=== PATIENT | female | born 1980 | race Hispanic/Latino ===

== ENCOUNTER 2025-03-08 07:03 | Emergency (ER) | payer OTHER, SELFPAY ==
[2025-03-08 07:13] VITALS: BP 136/96
--- NOTE | 2025-03-08 07:57 | ED.GENMED ---
History of Present Illness
General
Chief Complaint: Eye Problems
Time Seen by Provider: 03/08/25 07:57
History of Present Illness
History of Present Illness:
TIME OF INITIAL ENCOUNTER: 8 AM
HPI: The patient presents with acute redness and pain to the left eye. She prefers to keep her eyes closed due to the pain. She thinks that maybe she got something in the eye and has a sensation of a foreign body. She has a sharp sensation.
EXAM:
GENERAL: Well appearing in no distress
HEENT: Moist oral mucosa, the conjunctive of the left eye is markedly inflamed, no significant scleral chemosis, pupils are normally reactive but on the smaller side, no obvious foreign body, no fluorescein uptake
NEUROLOGIC: Excellent strength all extremities, no obvious coordination deficits
PSYCHIATRIC: Appropriate mental status, normal insight and judgement
EXTREMITIES: Nontender, no edema, moves all extremities equally
SKIN: No rash, no lesions
NUMBER AND COMPLEXITY OF PROBLEMS ADDRESSED AT THE ENCOUNTER
� Chronic conditions affecting care: No significant past medical history
� Acute Exacerbation and/or Progression of Chronic Illness: This is an acute problem
� Differential Diagnosis includes: Conjunctivitis related to virus, allergies, bacterial infection, foreign body, iritis less likely
AMOUNT AND/OR COMPLEXITY OF DATA TO BE REVIEWED AND ANALYZED
� I performed an independent evaluation of and my interpretation is:
EKG:
CT:
X-rays:
Laboratory Studies:
Other:
� Review of other/old records: The patient was seen here in 2022 with colitis
� Clinical information was obtained by an independent historian: Spoke to family at bedside
� Prescriptions/Medications Considered but not given:
� Further testing considered but not performed:
RISK OF COMPLICATIONS AND/OR MORBIDITY OR MORTALITY OF PATIENT MANAGEMENT
� Social determinants of health affecting care: lives at home
� Discussion with other providers:
� Escalation of care including admission/observation vs risk of discharge considered: No initial obvious foreign body on direct visualization. No uptake on fluorescein exam. I used tetracaine and then irrigated the wound
copiously. Overall she feels improved. Unclear etiology of the conjunctival injection but she may have had a small piece of debris. Will place on antibiotic as well.
ANY OTHER UPDATES:
Past History
Past History
ED Past Medical History: Other (arthritis, headaches)
ED Past Surgical History: Gynecological (Tubal ligation)
Social History
Tobacco: Non-smoker
Alcohol: Occasional
Drug: None
Personal: Single
Living: with family
Employment: Employed (Self-employed)
Family History
Family History: Other (Noncontributory)
Phy Exam
Physical Exam
Physical Exam:
See HPI
Course
Orders/Labs/Results
Orders:
Orders
03/08/25 08:26
Ofloxacin [Ocuflox] 1 drop .ROUTE .STK-MED ONE
03/08/25 13:00
Ofloxacin [Ocuflox] See Dose Instructions OPHTH QID
Vital Signs
Initial and Last Documented VS:
Initial Vital Signs
Temp Pulse Resp BP Pulse Ox
36.8 C 88 16 136/96 98
03/08/25 07:13 03/08/25 07:13 03/08/25 07:13 03/08/25 07:13 03/08/25 07:13
Last Documented Vital Signs
Temp Pulse Resp BP Pulse Ox
36.8 C 88 16 136/96 98
03/08/25 07:13 03/08/25 07:13 03/08/25 07:13 03/08/25 07:13 03/08/25 07:13
*Critical Care Note
Total Time (30-74mins, 75-104mins- exclusive of procedures): Not Applicable
ED Attending Note
-
Portions of this chart may have been created with voice recognition software.� Occasional wrong word or��sound alike� substitutions may have occurred due to the inherent limitations of voice recognition software.
Discharge Plan
Departure
Patient Disposition: Home (Routine Discharge)
Date of Disposition: 03/08/25
Time of Disposition: 08:14
Patient with high blood pressure during this ER visit?: Yes
Discharge Problem:
Conjunctivitis
Instructions: Conjunctivitis (Pinkeye) (DC), BLOOD PRESSURE
Prescriptions:
No Action
amoxicillin-pot clavulanate 875-125 mg tablet
1 tab PO BID Qty: 20 0RF
Referrals:
Katie Pederson CRNP [Family Provider]
Sheila Bland MD [Active, Ophthalmology]
Activity Restrictions/Additional Instructions:
I see no sign of foreign body and I see no sign of a corneal abrasion. Your conjunctiva appears very inflamed. We can try antibiotics. I used topical numbing drops initially and then saline to help irrigate any small debris that could be in the
eye. I have given the contact information for local body service team member, Dr. Bland if symptoms persist. Use 2 drops 4 times a day to the left eye.
Interventions
Interventions:
*Risk Screen - Suicide Last Done: 03/08/25 07:13
*Neglect/Abuse Screening Last Done: 03/08/25 07:13
Discharge Date and Time
Print Language: ESTONIAN
[2025-03-08] MEDS: OCUFLOX 1 DROP OPHTH (08:29)
== END 2025-03-08 09:02 | disposition home or self-care (01) ==
LOC: EMR 07:03
PROVIDERS: EMERGENCY PHYSICIAN Emergency Medicine; FAMILY PHYSICIAN Nurse Practitioner Primary Care
DX: H10.9 Unspecified conjunctivitis (principal)
CPT/HCPCS: 99283